=== PATIENT | female | born 1965 | race Caucasian/White ===

== ENCOUNTER 2021-07-29 06:00 | Emergency (ER) | payer OTHER ==
[~2021-07-29 06:00] MED LIST: PREDNISONE 20MG20 MG PO; VENTOLIN HFA IN18 GM INH; ZPAK PO
[2021-07-29] MEDS ORDERED: PERCOCET 5-3251 EACH PO (06:47)
[2021-07-29] MEDS ORDERED: VIBRAMYCIN100 MG PO (06:47)
== END 2021-07-29 07:25 | disposition home or self-care (01) ==
LOC: FER 06:00
DX: S71.112A Laceration without foreign body, left thigh, initial encounter (principal); Z86.718 Personal history of other venous thrombosis and embolism; Z79.01 Long term (current) use of anticoagulants; Z28.310 Unvaccinated for COVID-19; W01.110A Fall on same level from slipping, tripping and stumbling with subsequent striking against sharp glass, initial encounter; Y92.009 Unspecified place in unspecified non-institutional (private) residence as the place of occurrence of the external cause